=== PATIENT | female | born 1985 | race Two or more races ===

== ENCOUNTER 2016-12-10 05:40 | Inpatient (IN) ==
[2016-12-10] MEDS ORDERED: BUTORPHANOL 1 MG/ML VIAL IV PRN (06:34)
[2016-12-10] MEDS ORDERED: LACTATED RINGERS 250 ML IV ONE (06:34)
[2016-12-10] MEDS ORDERED: MEPERIDINE 50 MG/1 ML VIAL IV PRN (06:34)
[2016-12-10] MEDS ORDERED: ONDANSETRON 4 MG/2 ML VIAL IV PRN (06:34)
[2016-12-10] MEDS ORDERED: LACTATED RINGERS 1,000 ML IV ONE (07:00)
[2016-12-10] MEDS ORDERED: LACTATED RINGERS 1,000 ML IV SCH ×2 (07:00)
[2016-12-10] MEDS ORDERED: CITRIC ACID/SODIUM CITRATE 30 ML UDCUP PO ONE (07:00)
[2016-12-10] MEDS ORDERED: FAMOTIDINE 20 MG/2 ML VIAL IV ONE (07:00)
[2016-12-10 07:10] LABS: Basophils % 0.3 % (0.0-0.8); Hematocrit 37.4 VOL% (35.7-47.0); Hemoglobin 12.4 GM/DL (12.0-16.0); Immature Granulocytes % 0.4 %; Immature Granulocytes Absolute 0.03 #; Lymphocytes # 1.7 10*3/uL (1.4-4.0); Lymphocytes % 22.2 % (21.3-54.2); Mean Corpuscular HGB Conc 33.2 GM/DL (32-36); Mean Corpuscular Hemoglobin 30 PG (27-34); Mean Corpuscular Volume 91.4 FL (87-102); Mean Platelet Volume 14.2 FL (9.6-12.0); Monocytes # 0.3 10*3/uL (0.11-0.8); Monocytes % 3.8 % (1.7-12.7); Neutrophils # 5.6 10*3/uL (1.4-7.4); Neutrophils % 73.3 % (38.7-73.9); Platelet Count 117 T/CUMM (130-400); Red Blood Count 4.09 MC/CUMM (3.8-5.5); Red Cell Distribution Width 13.2 % (9.3-17.3); White Blood Count 7.6 T/CUMM (4-12)
[2016-12-10] MEDS ORDERED: CITRIC ACID/SODIUM CITRATE 30 ML UDCUP ONE (07:15)
[2016-12-10] MEDS ORDERED: fentaNYL 2 MCG/ROPIV 0.2% EPID 150 ML EPIDURAL ONE (07:15)
[2016-12-10 07:41] LABS: Albumin 2.6 G/DL (3.4-5.0); Bilirubin,Total 0.8 MG/DL (0.2-1.0); Calcium 9.4 MG/DL (8.5-10.1); Osmolality,Calculated 274.8 MOS/KG (273-304); Potassium 3.7 MMOL/L (3.5-5.1); Total Protein 6.9 G/DL (6.4-8.3); Uric Acid 5.9 MG/DL (2.6-6.0)
[2016-12-10] MEDS ORDERED: PROMETHAZINE 25 MG/1 ML VIAL IM ONE (08:12)
[2016-12-10] MEDS ORDERED: diphenhydrAMINE 50 MG/1 ML VIAL IV PRN ×2 (08:12)
[2016-12-10] MEDS ORDERED: hydrOXYzine HCL 25 MG/1 ML VIAL IM PRN (08:12)
[2016-12-10] MEDS ORDERED: ePHEDrine 50 MG/ML AMP IV PRN (08:12)
[2016-12-10] MEDS ORDERED: ONDANSETRON 4 MG/2 ML VIAL IV ONE (08:12)
[2016-12-10] MEDS ORDERED: METHYLERGONOVINE 0.2 MG/1 ML AMP ONE (08:29)
[2016-12-10] MEDS ORDERED: METHYLERGONOVINE 0.2 MG/1 ML AMP IM ONE (09:15)
--- NOTE | 2016-12-10 09:54 | OB/GYN History & Physical ---
History of Present Illness Chief complaint: In with complaints of spontaneous rupture of membranes History of present illness: is a 31 year old female who is a 2 para 0 AB 1. The patient presented to the labor department with complaints of uterine contractions and spontaneous rupture membranes. Her RICH is 12/31/2016 for an estimated gestational age of 37 weeks. The risk and benefits were thoroughly discussed with this patient and significant other and plan of care was discussed with Dr. Michaud, all parties are in agreement with plan of care. [facility] and she received routine care throughout. Her course was uneventful with the exception of gestational diabetes for which she was diet-controlled and did receive nonstress tests.. labs: She is O-, RPR is nonreactive, hepatitis B is negative, HIV is negative, rubella is immune, Pap smear was within normal limits. GBS culture is negative. Review of systems is negative with exception of above. Allergies Allergy/AdvReac Type Severity Reaction Status Date / Time No Known Allergies Allergy Verified 10/08/16 15:34 12 point system: reviewed and no additional remarkable complaints except as stated Medical,Surgical,& Family Hx - Medical History Medical History: noncontributory Cardio: No history of: CHF, Cardiovascular Problems Neurology: No history of: Migraine, Multiple Sclerosis Musculoskeletal: No history of: Amputation Reproductive: History of: Complication (miscarriage) - Surgical History Surgical History: noncontributory Cardiac Surgeries: Patient Denies: Cardiac Catheterization, Cardiac Surgery, Carotid Endarterectomy Thoracic Surgeries: Patient denies;: Organ Transplant, Lobectomy Neurologic Surgeries: Patient denies: Neurologic Surgery HEENT Surgeries: Patient denies: Carotid Endarterectomy, Tonsilectomy & Adenoidectomy Abdominal Surgeries: Patient denies: Abdominal Surgery Reproductive Surgeries: Patient denies;: Gynecologic Surgery - Family History Family History: Reports;: Family Cancer (GF throat), Family Diabetes (mother FATHER) - Social History Smoking Status: Never smoker Frequency of Alcohol Use: None Type of Drug Use: None Exam DRONE PILOT - Constitutional General appearance: mild distress - Antepartum / Post Antepartum Exam Cervix -Dilatation: 6 cm on admission Effacement: 80% Station: -2 Rupture: questionable rupture on admission Presentation: vtx Breast: bilateral: normal Abdomen obstetrics: Present: bowel sounds normal Vagina: Present: normal moisture, discharge Uterus exam: Present: enlarged Anus/Rectum: Present: normal perianal skin - Respiratory Respiratory exam: Present: clear to auscultation bilaterally - Cardiovascular Cardiovascular exam: Present: regular rate and rhythm - GI/Abdominal GI/Abdominal exam: Present: normal bowel sounds, soft - Extremities Exam Extremities exam: Present: normal inspection - Neurological Exam Neurological exam: Present: alert, oriented X3 - Psychiatric Psychiatric exam: Present: normal affect, normal mood - Skin Skin exam: Present: normal color, warm Assessment and Plan (1) Active labor Status: Acute Assessment and plan: Admit IV fluids IV Pitocin per protocol Artificial rupture membranes if indicated Epidural anesthesia if desired Anticipate Current Visit: Yes Results - Labs CBC & BMP: 12/10/16 07:02 12/10/16 07:02
[2016-12-10] MEDS: OXYTOCIN/LR 20 UNIT/1,000 ML BAG IV SCH ×2 (12:30→13:35)
[2016-12-10] MEDS ORDERED: hydrALAZINE 20 MG/1 ML VIAL ONE (13:28)
[2016-12-10] MEDS ORDERED: DEXTROSE 50% 25 GM/50 ML VIAL IV PRN (13:32)
[2016-12-10] MEDS ORDERED: GLUCAGON 1 MG VIAL IM PRN (13:32)
[2016-12-10] MEDS ORDERED: OXYTOCIN/LR 20 UNIT/1,000 ML BAG IV SCH (13:34)
[2016-12-10] MEDS ORDERED: hydrALAZINE 20 MG/1 ML VIAL IV ONE (14:00)
--- NOTE | 2016-12-10 17:46 | Event Note ---
Delivery note Stage I of labor Spontaneous rupture membranes External monitoring Epidural anesthetic IV Pitocin heart tones category 1 Stage II LML episiotomy Female infant 7 lbs. 2 oz., Apgars were 9 at 1 minute 9 at 5 minutes Cord blood and cord gas was obtained Stage III Placenta delivered manually 3 cord vessels Blood loss was 300 cc Episiotomy repair with 2-0 Vicryl and 3-0 chromic Mother stable bonding skin the skin
[2016-12-11] MEDS ORDERED: IBUPROFEN 800 MG TABLET ONE (03:59)
[2016-12-11] MEDS ORDERED: IBUPROFEN 800 MG TABLET PO PRN (04:00)
[2016-12-11 05:30] LABS: Basophils % 0.2 % (0.0-0.8); Eosinophils % 0.1 % (0.00-10.9); Hematocrit 28.5 VOL% (35.7-47.0); Hemoglobin 9.6 GM/DL (12.0-16.0); Immature Granulocytes % 0.3 %; Immature Granulocytes Absolute 0.03 #; Lymphocytes # 2.8 10*3/uL (1.4-4.0); Lymphocytes % 28.6 % (21.3-54.2); Mean Corpuscular HGB Conc 33.7 GM/DL (32-36); Mean Corpuscular Hemoglobin 31 PG (27-34); Mean Corpuscular Volume 91.1 FL (87-102); Mean Platelet Volume 14.4 FL (9.6-12.0); Monocytes # 0.6 10*3/uL (0.11-0.8); Monocytes % 6.5 % (1.7-12.7); Neutrophils # 6.2 10*3/uL (1.4-7.4); Neutrophils % 64.3 % (38.7-73.9); Platelet Count 108 T/CUMM (130-400); Red Blood Count 3.13 MC/CUMM (3.8-5.5); Red Cell Distribution Width 13.3 % (9.3-17.3); White Blood Count 9.7 T/CUMM (4-12)
[2016-12-11] MEDS: FERROUS SULFATE 325 MG TABLET PO SCH ×2 (09:00→22:00)
[2016-12-11] MEDS: DOCUSATE SODIUM 100 MG CAPSULE PO SCH ×2 (09:00→22:00)
--- NOTE | 2016-12-11 09:56 | OB/GYN Progress Note ---
Assessment and Plan (1) Active labor Status: Acute Assessment and plan: Admit IV fluids IV Pitocin per protocol Artificial rupture membranes if indicated Epidural anesthesia if desired Anticipate Current Visit: Yes (2) Vaginal delivery Status: Acute Assessment and plan: Initiate routine orders. 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 Bonding well with infant. Breast-feeding. Exam VETERINARY SURGERY TECHNICIAN - Constitutional Vitals: Vital Signs Temp Pulse Pulse Resp BP Pulse Ox 12/11/16 07:38 97.4 F L 60 18 118/74 98 12/11/16 04:00 97.8 F 81 20 126/84 97 12/10/16 23:39 97.5 F L 84 20 116/75 98 12/10/16 19:50 98.4 F 80 20 135/83 97 12/10/16 16:00 98.4 F 83 20 131/87 98 12/10/16 14:00 76 20 147/91 97 12/10/16 13:30 66 20 156/97 97 12/10/16 13:00 73 20 149/101 95 12/10/16 12:30 97.7 F 75 20 140/106 95 General appearance: no acute distress - Antepartum / Post Post Exam Breast: bilateral: normal Abdomen obstetrics: Present: bowel sounds normal Vagina: Present: normal moisture, discharge (Light lochia rubra) Uterus exam: Present: enlarged (Fundus firm and midline) Anus/Rectum: Present: normal perianal skin - Head Head exam: Present: normal inspection - Respiratory Respiratory exam: Present: clear to auscultation bilaterally - Cardiovascular Cardiovascular exam: Present: regular rate and rhythm - GI/Abdominal GI/Abdominal exam: Present: normal bowel sounds, soft - Extremities Exam Extremities exam: Present: normal inspection - Back Exam Back exam: Present: normal inspection - Neurological Exam Neurological exam: Present: alert, oriented X3 - Psychiatric Psychiatric exam: Present: normal affect, normal mood - Skin Skin exam: Present: normal color, warm Results - Labs CBC & BMP: 12/11/16 05:00 12/10/16 07:02
[2016-12-11] MEDS ORDERED: RHO(D) IMMUNE GLOBULIN 300 MCG SYRINGE IM ONE (10:56)
[2016-12-12 07:24] VITALS: BP 129/70
[2016-12-12] MEDS: FERROUS SULFATE 325 MG TABLET PO SCH (08:26)
[2016-12-12] MEDS: DOCUSATE SODIUM 100 MG CAPSULE PO SCH (08:26)
--- NOTE | 2016-12-12 10:29 | Anesthesia Post-Op ---
Anesthesia Post OP - Post Ansesthetic Evaluation Patient seen in post op: Yes Resp: within normal limits CV: within normal limits Mental: within normal limits Temp: within normal limits [id number]: within normal limits Nausea and Vomiting: within normal limits Pain: within normal limits
--- NOTE | 2016-12-12 10:42 | Discharge Summary ---
Hospital Course - Hospital Course Hospital Course: presented to the labor department with spontaneous rupture membranes. She subsequently delivered a viable with no complications. She has followed a normal course and she has done well. Her bleeding is minimal with no odor. She is breast-feeding her and bonding well. Her vital signs and lab values are stable. Her fundus is firm and midline. She has had a normal bowel movement in her bowel sounds are positive. She will be discharged home with prescriptions for pain and a follow-up appointment in our office. Diagnosis - Discharge Diagnosis (1) Active labor Status: Acute (2) Vaginal delivery Status: Acute Specialty Discharge - Follow Up or Referrals Follow up with: Oscar Michaud MD [Primary Care Provider] - 01/22/17 10:15 am Discharge Plan - Discharge Data Disposition: Disch To Home/Self Care Condition at Discharge: Stable Discharge Diet: advance to your usual diet Activity: resume usual activities as tolerated Hygiene: may shower Weight Bearing at Discharge: weight bear as tolerated Driving: no restrictions Contact your physician if you experience:: fever over 101, pain uncontrolled by pain medications - Discharge Medications New Acetamin/Codeine 300-30 Tab [Tylenol/Codeine #3] 2 tablet PO Q4H PRN #30 tablet PRN Reason: Pain Mild To Moderate (1-7) Ferrous Sulfate Tab [Feosol Original Tab] 325 mg PO BID #60 tablet Ibuprofen Tab [Motrin Tab] 800 mg PO Q6H PRN #30 tablet PRN Reason: Pain - Follow Up or Referral Follow Up: Oscar Michaud MD [Primary Care Provider] - 01/22/17 10:15 am - Forms/Instructions Exam - Constitutional Vitals: Period Temp Pulse Resp BP Sys/Grossman Pulse Ox Last 24 Hr 97.6 F-98 F 61-108 18-20 115-160/69-86 97-98 General appearance: no acute distress - Respiratory Respiratory exam: Present: clear to auscultation bilaterally - Cardiovascular Cardiovascular exam: Present: regular rate and rhythm - GI/Abdominal GI/Abdominal exam: Present: normal bowel sounds, soft - Extremities Exam Extremities exam: Present: normal inspection - Neurological Exam Neurological exam: Present: alert, oriented X3 - Psychiatric Psychiatric exam: Present: normal affect, normal mood - Skin Skin exam: Present: normal color, warm DS: Provider Date of admission: 12/10/16 06:34 Primary care physician: Oscar Michaud MD Attending physician on admission: Oscar Michaud MD Consults: 12/10/16 06:34 Consult to Anesthesiology [CONS] Routine Consulting Provider: Reason for Anesthesiology: Epidural Consult Comment: Epidural for pain managment Discharging clinician: Jeannine Dwyer CNM Expected date of discharge: 12/12/16
[2016-12-12] MEDS ORDERED: DIPH/TET/ACEL PERT BOOSTER VACCINE 0.5 ML VIAL IM ONE (11:41)
--- NOTE | 2017-01-20 07:46 | Discharge Summary ---
HISTORY: This patient was admitted on 10/08/2016 for diabetic management. She is approximately 28 weeks. She is a 4 with no living children. This patient was admitted for diabetic control. Blood sugars were all over, the fasting was well over 200. This patient instructed to be evaluated by the diabetic management, she was also informed that she will get a 24-hour urine protein and creatinine. She would also have her blood sugars checked four times a day, and she will be initiated on a low dose of insulin in order to monitor her blood sugars. The evaluation of this patient demonstrated a normal ultrasound demonstrating a viable intrauterine . The 24-hour urine protein and creatinine was within normal limits. This patient received her instructions on the diagnosing of her Humulin, which was 10 in the morning and 10 at night. She confirmed to the staff and to the [facility] that she understood the management and will be followed up in approximately one week. This patient's blood sugars remained in well balanced control throughout the hospitalization. LESLIE
== END 2016-12-12 13:00 | disposition home or self-care (01) | DRG 775 ==
LOC: N.LDOUT 05:40 → N.LD 05:42 → N.OB 12:30
PROVIDERS: ADMIT Obstetrics & Gynecology; ATTEND Obstetrics & Gynecology